=== PATIENT | female | born 1945 | race Caucasian/White ===

== ENCOUNTER 2024-10-18 09:31 | Emergency (ER) | payer MEDICARE ==
[~2024-10-18] VITALS: Ht 162.6 cm; Wt 60.2 kg
--- NOTE | 2024-10-18 10:23 | Physician Documentation ---
History of Present Illness ~ Chief Complaint: Mechanical Fall Stated Complaint: FALL Time Seen by MD: 10:19 Source: patient, family HPI 79-year-old female presenting for syncopal episode. She reports walking behind her friend when she suddenly fell forward her friend saw her fall and she did not catch herself she fell flat onto her face. She was unresponsive for about 30 seconds. She awoke with pain to her face. No chest pain. Patient has no recollection of the fall Medication Reconciliation Allergies: Coded Allergies: Penicillins (Verified Allergy, Intermediate, hives, 10/18/24) Review of Systems All Other Systems at this time: Reviewed and Negative Physical Exam Vital Signs: Temperature: 97.5, Source: Oral, Heart Rate: 56, Respiratory Rate: 15, BP: 162/60, Pulse Oximetry: 98, Weight: 60.200 Oxygen Flow Rate: 0 Physical Exam Face left periorbital ecchymosis left maxillary tenderness and swelling Extraocular motions intact and painless Intact visual acuity No C-spine tenderness Awake alert oriented normal gait Cardiac no murmur Lower extremity no edema Progress Results/Orders Reviewed/noted all lab results: Yes Results/Orders Orders - PAN SMITH MD Ct Head (10/18/24 10:19) Ct Facial Bones/Soft Tissue (10/18/24 ) Visual Acuity (10/18/24 ) Chest,Single View (10/18/24 ) Page Hospitalist (10/18/24 14:04) Fill Out Med Reconciliation (10/18/24 14:04) Completed Orders - PAN SMITH MD Ct Head (10/18/24 10:19) Ct Facial Bones/Soft Tissue (10/18/24 ) Electrocardiogram (10/18/24 ) BMP (10/18/24 12:22) Cbc/Diff (10/18/24 12:22) Troponin (Single) (10/18/24 12:22) Chest,Single View (10/18/24 ) Acetaminophen 325mg Tablet (Tylenol Tabl (10/18/24 13:30) Vital Signs 10/18/24 10/18/24 10/18/24 10/18/24 09:37 10:20 11:52 11:52 Temp 97.5 98.2 98.2 Pulse 56 54 56 Resp 15 16 16 16 B/P (MAP) 162/60 167/64 (98) 153/69 (97) Pulse Ox 98 98 98 O2 Flow Rate 0 0 0 10/18/24 14:04 Temp 98.2 Pulse 56 Resp 16 B/P (MAP) 155/74 (101) Pulse Ox 97 O2 Flow Rate 0 Laboratory Tests Test 10/18/24 12:43 White Blood Count 12.7 H Red Blood Count 4.06 L Hemoglobin 12.9 Hematocrit 38.8 Mean Corpuscular Volume 95.5 Mean Corpuscular Hemoglobin 31.6 H Mean Corpuscular Hemoglobin Concent 33.1 Red Cell Distribution Width 14.5 Platelet Count 303 Mean Platelet Volume 8.4 Neutrophils (%) (Auto) 77.9 H Lymphocytes (%) (Auto) 15.3 L Monocytes (%) (Auto) 6.0 Eosinophils (%) (Auto) 0.4 Basophils (%) (Auto) 0.4 Neutrophils # (Auto) 9.9 H Lymphocytes # (Auto) 1.9 Monocytes # (Auto) 0.8 Eosinophils # (Auto) 0.0 Basophils # (Auto) 0.1 CBC Comment Sodium Level 140 Potassium Level 4.0 Chloride Level 104 Carbon Dioxide Level 26.6 Anion Gap 9 Blood Urea Nitrogen 21 H Creatinine 0.89 Estimated GFR/1.73 m2 62 BUN/Creatinine Ratio 23.6 H Glucose Level 97 Calcium Level 9.4 Troponin I High Sensitivity 26 Albumin 4.0 Chemistry Comments EKG/XRAY/CT/US/VASC/MRI EKG : Additional Comment EKG independently interpreted by myself time 12:11 p.m. indication syncope sinus bradycardia rate 56 normal axis short LA, no ST or T-wave abnormalities CT : Impression CT head independently interpreted by myself shows no intracranial hemorrhage Medical Decision Making Additional info obtained from: family Differential Dx:Considerations: Include: Closed head injury, Cardiac injury, Fracture(s) Departure Disposition: 07 LEFT AGAINST MEDICAL ADVICE Admitted to Inpatient Unit: to hospitalist Impression: Primary Impression: Syncope and collapse Additional Instructions: As discussed we highly recommend you stay in the emergency department for further evaluation and treatment. You do not want to stay in the hospital and are aware of the risks of going home. The next best alternative is for you to call your assignment agent today to be seen as soon as possible for further workup. Please return to the emergency department if you have any further episodes of passing out Referrals: NO PRIMARY CARE PROVIDER (PCP) Signature Scribe Signature: na Attestation: PAN Ac MD October 18, 2024 10:22
--- NOTE | 2024-10-18 11:49 | RADIOLOGY REPORT ---
CT CT HEAD INDICATION: head trauma EXAM DATE: 10/18/2024 10:57 AM COMPARISON: None RADIATION DOSE: CTDIvol: 51 mGy, DLP: 871 mGy*cm PROCEDURE: CT scans of the head were obtained from the vertex to the skull base. Sagittal and coronal reconstructions were provided. All CT scans at this medical facility are performed using dose modulation techniques as appropriate t o a performed exam including the following: Automated exposure control was utilized; adjustment of th e MA and/or KV according to patient size; and use of iterative reconstruction technique. FINDINGS: There is sulcal and ventricular prominence. The brainshows normal morphology and gregory-whi te matter differentiation, without intracranial hemorrhage, extra-axial fluid collection, mass effect or acute large vessel infarct. The ventricles are normal in size. The basal cisterns are patent. The skull and visible facial bones are intact. The paranasal sinuses, mastoid air cells and middle ear c avities are well-aerated. The soft tissues of the scalp are unremarkable. IMPRESSION: No acute intracranial abnormality.
--- NOTE | 2024-10-18 11:58 | RADIOLOGY REPORT ---
HISTORY: facial trauma TECHNIQUE: Nonenhanced axial images through the facial bones with coronal and sagittal MPR. Radiation Dose Information: CT Dose: CTDI volume is 55 mGy. Dose-length product is 1069.3 mGy*cm COMPARISON: None FINDINGS: Mandible: Unremarkable Maxilla: Unremarkable Zygomatic arches: Unremarkable Nasal bone: Unremarkable Orbits: Unremarkable Sinuses: Clear Facial swelling: Moderate to severe left facial soft-tissue swelling and hematoma most prominent ove rlying the left maxilla and mandible. IMPRESSION: 1. No acute facial fractures. 2. Moderate to severe left facial soft-tissue swelling and hematoma most prominent overlying the left maxilla and mandible. Radiation optimization: All CT scans at this facility use at least one of these dose optimization rebecca hniques: automated exposure control mA and/or kV adjustment per patient size (includes targeted exam s where dose is matched to clinical indication) or iterative reconstruction.
--- NOTE | 2024-10-18 12:14 | ELECTROCARDIOGRAPH REPORT ---
[facility] Test Date: 2024-10-18 Test Time: 12:11:02 Pat Name: LUCY SAMUELS Department: [facility]- Patient ID: [id number] Room: Gender: F Bottom Filler: : 1945 Requested By: PAN SMITH Order Number: [id number] Reading MD: Dr. Ketan Seymour Measurements Intervals Landing Rate: 56 P: 48 CT: 105 QRS: 52 QRSD: 81 T: 88 QT: 471 QTc: 455 Interpretive Statements Sinus bradycardia Short CT interval Electronically Signed On 10-21-2024 13:43:[address] Ketan Seymour Please click the below link to view image of tracing.
[2024-10-18 13:12] LABS: BASOPHILS # (AUTO) 0.1 X10'3 (0-0.2); BASOPHILS % (AUTO) 0.4 % (0-1); EOSINOPHILS % (AUTO) 0.4 % (0-6); HEMATOCRIT 38.8 % (35.0-45.0); HEMOGLOBIN 12.9 g/dl (12.0-16.0); LYMPHOCYTES # (AUTO) 1.9 X10'3 (1.1-4.8); LYMPHOCYTES % (AUTO) 15.3 % (21-51); MEAN CORPUSCULAR HEMOGLOBIN 31.6 PG (27.0-31.0); MEAN CORPUSCULAR HGB CONC 33.1 g/dL (33.0-36.5); MEAN CORPUSCULAR VOLUME 95.5 FL (78-98); MEAN PLATELET VOLUME 8.4 FL (7.4-10.4); MONOCYTES # (AUTO) 0.8 X10'3 (0-0.9); NEUTROPHILS # (AUTO) 9.9 X10'3 (1.8-7.7); NEUTROPHILS % (AUTO) 77.9 % (42-75); PLATELET COUNT 303 X10'3 (140-440); RED BLOOD COUNT 4.06 X10'6 (4.20-5.60); RED CELL DISTRIBUTION WIDTH 14.5 % (11.5-14.5); WHITE BLOOD COUNT 12.7 X10'3 (4.5-11.0)
--- NOTE | 2024-10-18 13:24 | RADIOLOGY REPORT ---
EXAM: DI CHEST,SINGLE VIEW Indication: syncope Technique: Single frontal view of the chest was obtained Comparison: None FINDINGS: Lines and Tubes: None Lungs: No focal consolidation. Pleura: No effusion. No pneumothorax. Cardiomediastinal contours: Unremarkable Bones: No acute osseous abnormality. IMPRESSION: No acute cardiopulmonary disease.
[2024-10-18 13:28] LABS: ANION GAP 9 (8-16); BLOOD UREA NITROGEN 21 MG/DL (7-18); BUN/CREATININE RATIO 23.6 (10.0-20.0); CALCIUM 9.4 MG/DL (8.5-10.1); CHLORIDE 104 MMOL/L (99-107); CREATININE 0.89 MG/DL (0.40-0.90); GLUCOSE 97 MG/DL (70-104); SODIUM 140 MMOL/L (135-145); TOTAL CARBON DIOXIDE 26.6 MMOL/L (24-32); eCRCL 46 ML/MIN; eGFR 62 ML/MIN
[2024-10-18] MEDS: acetaminophen 325mg tablet PO ONE (13:47)
[2024-10-18 14:04] VITALS: BP 155/74; PULSE 56; RESP 16; TEMP 98.2; O2SAT 97
== END 2024-10-18 14:40 | disposition left against medical advice (07) ==
LOC: ER 09:32
DX: R55 Syncope and collapse (principal); Z88.0 Allergy status to penicillin
CPT/HCPCS: 36415; 70450; 70486; 71045; 72125; 80048; 84484; 85025; 93005; 99285